=== PATIENT | male | born 1990 | race Caucasian/White ===

== ENCOUNTER 2016-07-28 01:43 | Emergency (ER) | payer OTHER ==
[~2016-07-28] VITALS: Ht 162.6 cm; Wt 63.0 kg
[~2016-07-28 01:43] MED LIST: BUPROPION XL150 MG PO; NO
[2016-07-28 02:20] LABS: HEMATOCRIT 43.7 % (38.0-50.0); MCHC 35.2 G/DL (30.0-36.0); MCV 90.9 FL (86-99); MEAN PLAT.VOLUME 8.9 uM^3 (9.0-12.4); PLATELET COUNT 397 K/uL (156-360); RBC DIS.WIDTH-SD 42.8 % (39-53); RED BLOOD COUNT 4.81 M/uL (4.00-5.50); WHITE BLOOD COUNT 18.4 K/uL (4.1-10.2)
[2016-07-28 02:36] LABS: CHLORIDE 111 mEq/L (99-109); POTASSIUM 4.3 mEq/L (3.7-5.4); SODIUM 143 mEq/L (136-147)
[2016-07-28 02:38] LABS: GLUCOSE 84 mg/dL (70-99)
[2016-07-28 02:39] LABS: ANION GAP 16 MEQ/L (2-14)
[2016-07-28 02:40] LABS: TOTAL BILIRUBIN 0.2 mg/dL (0.0-1.0)
[2016-07-28 02:41] LABS: SERUM ETHYL ALCOHOL 184 mg/dL
[2016-07-28 02:42] LABS: ALKALINE PHOSPHATASE 71 IU/L (3-129); GFR ESTIMATE (CALCULATED) > 59 mL/min/
[2016-07-28 02:43] LABS: UREA NITROGEN (BUN) 14 mg/dL (9-23)
[2016-07-28 02:45] LABS: LIPASE 19 U/L (1.0-51.0)
[2016-07-28 03:01] VITALS: BP 128/81
== END 2016-07-28 03:02 | disposition left against medical advice (07) ==
LOC: EME 01:43
PROVIDERS: Emergency Medicine
DX: R07.81 Pleurodynia (principal); S00.81XA Abrasion of other part of head, initial encounter; F17.200 Nicotine dependence, unspecified, uncomplicated; Y04.0XXA Assault by unarmed brawl or fight, initial encounter; Z88.2 Allergy status to sulfonamides; Z88.0 Allergy status to penicillin
CPT/HCPCS: 71101; 80053; 81003; 83690; 85027; 99281; 99282; G0480

== ENCOUNTER 2017-04-13 02:15 | Emergency (ER) | payer OTHER ==
[~2017-04-13] VITALS: Ht 162.6 cm; Wt 61.7 kg
[2017-04-13 02:18] VITALS: BP 114/50
== END 2017-04-13 02:50 | disposition left against medical advice (07) ==
LOC: EME 02:15
DX: S69.91XA Unspecified injury of right wrist, hand and finger(s), initial encounter (principal); Z53.21 Procedure and treatment not carried out due to patient leaving prior to being seen by health care provider

== ENCOUNTER 2017-10-16 20:46 | Emergency (ER) | payer SELFPAY ==
[~2017-10-16] VITALS: Ht 160 cm; Wt 68.2 kg
[2017-10-16 21:54] LABS: HEMATOCRIT 47.1 % (38.0-50.0); HEMOGLOBIN 16.7 G/DL (12.5-16.6); MCH 32.6 PG (29.0-34.0); MCHC 35.5 G/DL (30.0-36.0); MCV 91.8 FL (86-99); PLATELET COUNT 396 K/uL (156-360); RBC DIS.WIDTH-CV 12.6 % (11.8-14.6); RBC DIS.WIDTH-SD 42.5 % (39-53); RED BLOOD COUNT 5.13 M/uL (4.00-5.50); WHITE BLOOD COUNT 16.6 K/uL (4.1-10.2)
[2017-10-16 22:11] LABS: CHLORIDE 109 mEq/L (99-109); POTASSIUM 4.1 mEq/L (3.7-5.4); SODIUM 145 mEq/L (136-147)
[2017-10-16 22:13] LABS: GLUCOSE 113 mg/dL (70-99)
[2017-10-16 22:16] LABS: SERUM ETHYL ALCOHOL 259 mg/dL
[2017-10-16 22:17] LABS: GFR ESTIMATE (CALCULATED) > 59 mL/min/ (58.99-99999)
[2017-10-16 22:18] LABS: UREA NITROGEN (BUN) 12 mg/dL (9-23)
[2017-10-16 22:28] LABS: APPEARANCE CLOUDY ((CLEAR)); BILIRUBIN NEGATIVE; BLOOD NEGATIVE; COLOR YELLOW ((YELLOW)); GLUCOSE (STRIP) NEGATIVE; KETONES NEGATIVE; LEUKOCYTES NEGATIVE; NITRITE NEGATIVE; PROTEIN (STRIP) 100; UROBILINOGEN 0.2 MG/DL (0.2-1.0)
[2017-10-16 22:37] LABS: AMPHETAMINE NEGATIVE (500 ng/mL); BARBITURATES NEGATIVE (200 ng/mL); BENZODIAZEPINES NEGATIVE (150 ng/mL); COCAINE NEGATIVE (150 ng/mL); METHADONE NEGATIVE (200 ng/mL); METHAMPHETAMINE NEGATIVE (500 ng/mL); OPIATES (MORPHINE) NEGATIVE (100 ng/mL); OXYCODONE NEGATIVE (100 ng/mL); PHENCYCLIDINE NEGATIVE (25 ng/mL); PROPOXYPHENE NEGATIVE (300 ng/mL); THC CANNABINOIDS NEGATIVE (50 ng/mL); TRICYCLIC ANTIDEPRESSANTS NEGATIVE (300 ng/mL)
[2017-10-16 22:38] LABS: BUPRENORPHINE NEGATIVE (10 ng/mL)
[2017-10-16 22:40] LABS: BACTERIA RARE /HPF; EPITHELIAL CELLS RARE /HPF; MUCUS 1+ /LPF; RED BLOOD CELLS 0-5 /HPF (0-5); UCUL ADDED? NO; WHITE BLOOD CELLS 0-5 /HPF (0-5)
[2017-10-16 23:34] VITALS: BP 124/88
== END 2017-10-16 23:35 | disposition home or self-care (01) ==
LOC: EME → EDBD 20:46 → EME 20:46
PROVIDERS: Physician Assistant Medical
DX: S52.201A Unspecified fracture of shaft of right ulna, initial encounter for closed fracture (principal); S62.300A Unspecified fracture of second metacarpal bone, right hand, initial encounter for closed fracture; R51 Headache; Y00.XXXA Assault by blunt object, initial encounter; Y07.59 Other non-family member, perpetrator of maltreatment and neglect; Z23 Encounter for immunization; J45.909 Unspecified asthma, uncomplicated; F31.9 Bipolar disorder, unspecified; F17.200 Nicotine dependence, unspecified, uncomplicated; Z88.2 Allergy status to sulfonamides; Z88.0 Allergy status to penicillin
CPT/HCPCS: 70450; 73090; 73110; 73130; 80048; 81003; 85027; 99281; 99283; G0480

== ENCOUNTER 2017-10-19 19:48 | Inpatient (IN) | payer OTHER ==
[~2017-10-19] VITALS: Ht 162.6 cm; Wt 65.3 kg
[2017-10-19 20:19] LABS: HEMATOCRIT 42.2 % (38.0-50.0); HEMOGLOBIN 15.2 G/DL (12.5-16.6); MCH 33.5 PG (29.0-34.0); PLATELET COUNT 337 K/uL (156-360); RBC DIS.WIDTH-CV 12.3 % (11.8-14.6); RBC DIS.WIDTH-SD 42.2 % (39-53); RED BLOOD COUNT 4.54 M/uL (4.00-5.50); WHITE BLOOD COUNT 10.2 K/uL (4.1-10.2)
[2017-10-19 20:41] LABS: CHLORIDE 103 MEQ/L (99-109); SODIUM 140 MEQ/L (136-147)
[2017-10-19 20:47] LABS: CREATININE 0.9 MG/DL (0.6-1.3); GFR ESTIMATE (CALCULATED) > 59 mL/min/ (58.99-99999); GLUCOSE 104 mg/dL (70-99); SERUM ETHYL ALCOHOL < 10 mg/dL; UREA NITROGEN (BUN) 19 mg/dL (9-23)
[2017-10-19 22:36] LABS: AMPHETAMINE NEGATIVE (500 ng/mL); BARBITURATES NEGATIVE (200 ng/mL); BENZODIAZEPINES NEGATIVE (150 ng/mL); BUPRENORPHINE NEGATIVE (10 ng/mL); COCAINE NEGATIVE (150 ng/mL); METHADONE NEGATIVE (200 ng/mL); METHAMPHETAMINE NEGATIVE (500 ng/mL); OPIATES (MORPHINE) NEGATIVE (100 ng/mL); OXYCODONE NEGATIVE (100 ng/mL); PHENCYCLIDINE NEGATIVE (25 ng/mL); PROPOXYPHENE NEGATIVE (300 ng/mL); THC CANNABINOIDS NEGATIVE (50 ng/mL); TRICYCLIC ANTIDEPRESSANTS NEGATIVE (300 ng/mL)
[2017-10-19 23:07] VITALS: BP 125/86
[2017-10-20 07:47] VITALS: BP 137/81
[2017-10-20 15:26] VITALS: BP 116/59
[2017-10-21 07:40] VITALS: BP 117/72
[2017-10-21 16:02] VITALS: BP 116/71
[2017-10-22 08:05] VITALS: BP 132/89
[2017-10-22 16:00] VITALS: BP 144/63
[2017-10-23 07:54] VITALS: BP 123/77
[2017-10-23 15:39] VITALS: BP 134/85
[2017-10-24 07:43] VITALS: BP 107/58
[2017-10-24 15:33] VITALS: BP 127/76
[2017-10-25 07:54] VITALS: BP 118/67
[2017-10-25] MEDS ORDERED: DIVALPROEX SOD500 M1 PO (10:07)
[2017-10-25] MEDS ORDERED: RISPERDAL3 MG PO ×2 (10:07→10:09)
== END 2017-10-25 11:30 | disposition home or self-care (01) | DRG 885 ==
LOC: EME 19:48 → 1WEST 21:54 → EDOF 21:54 → 1WEST 21:54
DX: F31.9 Bipolar disorder, unspecified (principal); F63.9 Impulse disorder, unspecified; F10.10 Alcohol abuse, uncomplicated; J45.909 Unspecified asthma, uncomplicated; R45.851 Suicidal ideations; S52.201A Unspecified fracture of shaft of right ulna, initial encounter for closed fracture; S62.390A Other fracture of second metacarpal bone, right hand, initial encounter for closed fracture; S62.610A Displaced fracture of proximal phalanx of right index finger, initial encounter for closed fracture; Y00.XXXA Assault by blunt object, initial encounter; F17.200 Nicotine dependence, unspecified, uncomplicated; Z88.2 Allergy status to sulfonamides; Z88.0 Allergy status to penicillin
CPT/HCPCS: 70450; 73090; 73110; 73130; 80048; 80164; 81003; 85027; 90839; 97150 GO; 99281; 99283; 99285; G0480

== ENCOUNTER 2017-11-22 20:13 | Emergency (ER) | payer OTHER ==
[~2017-11-22 20:13] MED LIST changes: +DIVALPROEX SOD500 M1 PO; +RISPERDAL3 MG PO
== END 2017-11-22 20:40 | disposition left against medical advice (07) ==
LOC: EME 20:13
DX: S49.91XA Unspecified injury of right shoulder and upper arm, initial encounter (principal); Z53.21 Procedure and treatment not carried out due to patient leaving prior to being seen by health care provider